=== PATIENT | female | born 1965 | race Caucasian/White ===

== ENCOUNTER 2020-11-22 20:39 | Emergency (ER) | payer OTHER ==
[~2020-11-22] VITALS: Ht 170.2 cm; Wt 62.6 kg
[2020-11-22] MEDS ORDERED: SENEXON-S 50-81 EACH PO (20:47)
[2020-11-22] MEDS ORDERED: XANAX 0.5 MG0.5 MG PO (20:47)
[2020-11-22] MEDS ORDERED: CATAPRES-TTS 20.2 MG PO (20:48)
[2020-11-22] MEDS ORDERED: FLONASE 0.05%50 MCG NARES (20:48)
[2020-11-22] MEDS ORDERED: OMEPRAZOLE 20 M20 M1 PO (20:49)
[2020-11-22] MEDS ORDERED: ACYCLOVIR 400400 MG PO (20:49)
[2020-11-22] MEDS ORDERED: KLOR-CON 10 ER10 MEQ PO (20:50)
[2020-11-22] MEDS ORDERED: VITAMIN D3-CAL1 EACH PO (20:50)
[2020-11-22] MEDS ORDERED: CALCIUM500 MG PO (20:50)
[2020-11-22] MEDS ORDERED: ZUPLENZ4 MG PO (20:52)
[2020-11-22] MEDS ORDERED: MS CONTIN15 MG PO (20:52)
[2020-11-22] MEDS ORDERED: ACID CONTROLLER20 MG PO (20:52)
[2020-11-22] MEDS ORDERED: FLEXERIL PO (20:53)
[2020-11-22] MEDS ORDERED: LEVOTHYROXINE100 MC2 PO (20:53)
[2020-11-22] MEDS ORDERED: MAGNESIUM250 M1 PO (20:53)
[2020-11-22] MEDS ORDERED: VITAMIN B COMP1 EACH PO (20:54)
[2020-11-22 21:04] LABS: URINE BILIRUBIN NEGATIVE (Negative); URINE BLOOD NEGATIVE (Negative); URINE CLARITY CLEAR; URINE COLOR YELLOW; URINE GLUCOSE-RANDOM NEGATIVE (Negative); URINE KETONES 1+ (Negative); URINE LEUKOCYTES-REFLEX NEGATIVE (Negative); URINE NITRITE-REFLEX NEGATIVE (Negative); URINE PROTEIN NEGATIVE (Negative); URINE SPECIFIC GRAVITY 1.015 (1.005-1.030); URINE UROBILINOGEN 0.2 E.U./dl (0.2-1.0)
[2020-11-22 21:31] LABS: HEMATOCRIT 35.4 % (37.0-47.0); HEMOGLOBIN 11.8 gm/dL (12.0-15.0); MCH 32.9 pg (26.0-34.0); MCHC 33.5 g/dL (28.0-37.0); MCV 98.2 fL (80.0-100.0); MPV 6.9 fl. (7.2-11.1); RBC 3.6 mil/uL (4.20-5.00); RDW-CV 16.7 % (10.5-14.5); WBC 4.5 thou/uL (4.0-11.0)
[2020-11-22 21:47] LABS: CALCIUM 8.3 mg/dL (8.5-10.1); CREATININE 0.5 mg/dL (0.6-1.3); POTASSIUM 3.8 mmol/L (3.5-5.1)
[2020-11-22 21:52] LABS: ALBUMIN 3.5 g/dL (3.4-5.0); TOTAL BILIRUBIN 0.6 mg/dL (<0.1-1.0); TOTAL PROTEIN 6.9 g/dL (6.4-8.2)
[2020-11-23 01:03] VITALS: BP 107/71
--- NOTE | 2020-11-23 17:04 | EKG ---
[place] [address] ELECTROCARDIOGRAM REPORT Name: MIKIE PRINCE Room: [facility]#: [id number] Admission: 11/22/20 Attend Phys: Discharge: 11/23/20 Date of : 69 Date of Service: 11/22/202036 Report #: [id number] THIS REPORT FOR: //name// [facility] ED Test Date: 2020-11-22 Test Time: 20:37:58 Pat Name: MIKIE PRINCE Department: Room: Gender: Clerk Guide: MS : 1965 Requested By: Christin Cisse Order Number: [id number] MD: Koffi Rasheed Measurements Intervals [place] Rate: 91 P: 74 [place]: 147 QRS: 90 QRSD: 92 T: 33 QT: 386 QTc: 475 Interpretive Statements Sinus rhythm Borderline right axis deviation No previous ECG available for comparison Electronically Signed On 11-23-2020 17:03:58 CDT by Koffi Rasheed [email or web address] <ELECTRONICALLY SIGNED> By: Koffi Rasheed MD, [facility] 11/23/20 1703 36 36 Koffi Rasheed MD, FACC /EPI
== END 2020-11-23 01:06 | disposition home or self-care (01) ==
LOC: M.ERS 20:39
PROVIDERS: Personal Emergency Response Attendant
DX: R10.10 Upper abdominal pain, unspecified (principal); E86.0 Dehydration; Z85.3 Personal history of malignant neoplasm of breast; Z85.118 Personal history of other malignant neoplasm of bronchus and lung; Z79.899 Other long term (current) drug therapy; Z79.891 Long term (current) use of opiate analgesic; Z79.1 Long term (current) use of non-steroidal anti-inflammatories (NSAID)

== ENCOUNTER 2020-12-08 17:16 | Emergency (ER) | payer OTHER ==
[~2020-12-08] VITALS: Ht 170.2 cm; Wt 62.6 kg
[~2020-12-08 17:16] MED LIST: ACID CONTROLLER20 MG PO; ACYCLOVIR 400400 MG PO; CALCIUM500 MG PO; CATAPRES-TTS 20.2 MG PO; FLEXERIL PO; FLONASE 0.05%50 MCG NARES; KLOR-CON 10 ER10 MEQ PO; LEVOTHYROXINE100 MC2 PO; MAGNESIUM250 M1 PO; MS CONTIN15 MG PO; OMEPRAZOLE 20 M20 M1 PO; SENEXON-S 50-81 EACH PO; VITAMIN B COMP1 EACH PO; VITAMIN D3-CAL1 EACH PO; XANAX 0.5 MG0.5 MG PO; ZUPLENZ4 MG PO
[2020-12-08 18:09] VITALS: BP 113/77
== END 2020-12-08 18:10 | disposition home or self-care (01) ==
LOC: M.ERS 17:16
DX: K59.00 Constipation, unspecified (principal); Z85.3 Personal history of malignant neoplasm of breast; Z79.899 Other long term (current) drug therapy